=== PATIENT | male | born 1955 | race Caucasian/White ===

== ENCOUNTER 2016-05-03 21:51 | Emergency (ER) | payer OTHER ==
[2016-05-03 22:11] VITALS: BP 161/93
--- NOTE | 2016-05-03 22:22 | EDM.PDOC ---
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 He pushed off the machine just so wouldn't roll on him, fell about 5 feet onto the point of his right shoulder onto the cement floor. He had several sweaters on methods cold in the warehouse but he had immediate pain in the right shoulder with difficulty moving it. The pain is decreasing over time. This happened about an hour ago. No history of previous shoulder injury No other injuries Had a cold a week ago but has recovered from that Had heart attack 4 years ago Right-handed No pins and needles or numbness in the arm or hand The wounds Allergies/ADRs: Allergies No Known Allergies Allergy (Verified 05/03/16 22:14) Home Medications: Ambulatory Orders Clopidogrel Bisulfate [Clopidogrel] 75 mg PO DAILY 05/03/16 [Confirmed 05/03/16] Metoprolol Tartrate [Metoprolol Tartrate] 50 mg PO BID 05/03/16 [Confirmed 05/03] atorvaSTATin [Lipitor] 10 mg PO ONETIME 05/03/16 [Confirmed 05/03/16] Review of Systems - Review of Systems Review Of Systems: ROS reveals no pertinent complaints other than HPI. Musculoskeletal: Reports: shoulder pain (Right side decreased range of motion) Trauma Exam - Physical Exam Exam: See Below Exam Limited By: No limitations General Appearance: Reports: alert, no apparent distress, other (Elevated blood pressure otherwise vital signs normal, no difficulty speaking or breathing) Head: Reports: atraumatic, normocephalic Eyes: bilateral eye: normal inspection Ears: Reports: normal external exam, hearing grossly normal Nose: Reports: normal inspection Throat/Mouth: Reports: Normal voice Neck: Reports: non-tender Respiratory Exam: Reports: no respiratory distress, no accessory muscle use Cardiovascular: Reports: normal peripheral pulses, regular rate, rhythm Back: Reports: normal inspection, non-tender Extremities: Reports: tenderness (Over the deltoid right shoulder, no tenderness elsewhere, mild swelling over the deltoid.), other (Unable to abduct right shoulder however internal and external rotation appears to be intact) Neurologic: Reports: no motor/sensory deficits, normal mood/affect Skin: Reports: Normal color, Warm/dry, Other (The wounds) - Nelida Coma Score Best Eye Response (Hart): (4) open spontaneously Best Verbal Response (Nelida): (5) oriented Best Motor Response (Hart): (6) obeys commands Course - Vital Signs Last Recorded V/S: Last Vital Signs Temp 37 C 05/03/16 22:14 Pulse 59 L 05/03/16 22:14 Resp 16 05/03/16 22:14 BP 161/93 H 05/03/16 22:14 Pulse Ox 97 05/03/16 22:14 - Orders/Labs/Meds Orders: Active Orders 24 hr Category Date Time Status Shoulder Comp Rt [CR] Stat Exams 05/03/16 22:15 Taken Acetaminophen [Tylenol Bulk Bottle] Med 05/03/16 22:41 Once 975 mg PO NOW ONE - Re-Assessments/Exams Free Text/Narrative Re-Assessment/Exam: 05/03/16 22:21 60-year-old male with injury to the right shoulder at work, from a fall directly onto the point of the right shoulder. Declined analgesics immediately X-ray right shoulder negative for fracture by my interpretation 05/03/16 22:40 Acetaminophen 975 mg by mouth Range of motion exercises OTC analgesics get rechecked if pain is worsening Do not do heavy work with the right shoulder but stays active and get rechecked one week if not significantly improved 05/03/16 22:41 Departure - Departure Time of Disposition: 22:42 Disposition: Home, Self-Care 01 Condition: good Clinical Impression: Contusion of right shoulder, initial encounter Qualifiers: Encounter type: initial encounter Qualified Code(s): S40.011A - Contusion of right shoulder, initial encounter Instructions: Shoulder Pain, [id number], Shoulder Range of Motion Exercises Forms: ED Department Discharge Additional Instructions: Take acetaminophen/ibuprofen/naproxen for pain as needed Get rechecked if not significantly improving in a week or if her pain is worsening and not controlled by nonprescription medications. Avoid heavy work with his shoulder for a week but stay active, do range of motion exercises so that your shoulder doesn't stiffen up and become scarred - My Orders Last 24 Hours: My Active Orders 05/03/16 22:15 Shoulder Comp Rt [CR] Stat 05/03/16 22:41 Acetaminophen [Tylenol Bulk Bottle] 975 mg PO NOW ONE - Assessment/Plan Last 24 Hours: My Active Orders 05/03/16 22:15 Shoulder Comp Rt [CR] Stat 05/03/16 22:41 Acetaminophen [Tylenol Bulk Bottle] 975 mg PO NOW ONE
[2016-05-03] MEDS ORDERED: Acetaminophen 325 MG Tab, 50 Tab Bulk Bottle PO ONE (22:41)
[2016-05-03] MEDS ORDERED: Acetaminophen 325 MG Tab PO ONE (22:44)
--- NOTE | 2016-05-04 12:37 | CR ---
Moderate AC joint hypertrophy. Spurring at the acromion. This can indicate impingement and/or rotato r cuff arthropathy. No evidence for fracture.
== END 2016-05-03 22:56 | disposition home or self-care (01) ==
LOC: JP.ED 21:51
DX: S40.011A Contusion of right shoulder, initial encounter (principal); Z79.02 Long term (current) use of antithrombotics/antiplatelets; Z79.899 Other long term (current) drug therapy; W01.0XXA Fall on same level from slipping, tripping and stumbling without subsequent striking against object, initial encounter
CPT/HCPCS: 73030; 99284; A9270